=== PATIENT | female | born 1945 | race Asian ===

== ENCOUNTER 2016-12-01 09:51 | Inpatient (IN) | payer MEDICARE, MEDICAID ==
[~2016-12-01] VITALS: Ht 165.1 cm; Wt 68.0 kg
[2016-12-01] VITALS (15 sets, daily range): BP systolic 77–133
[2016-12-01] MEDS ORDERED: NITROGLYCERIN LINGUAL 400 mCg/SPRAY SL ONE (10:15)
[2016-12-01 10:20] LABS: BASOPHILS # (AUTO) 0.2 K/uL (0.0-0.2); EOSINOPHILS # (AUTO) 0.3 K/uL (0.0-0.4); EOSINOPHILS % (AUTO) 2.5 % (0.0-4.0); HEMATOCRIT 33.4 % (36-48); HEMOGLOBIN 11.2 g/dL (12.0-16.0); LYMPHOCYTES # (AUTO) 2.4 K/uL (1.0-5.5); MEAN CORPUSCULAR HEMOGLOBIN 31 pg (27-31); MEAN CORPUSCULAR HGB CONC 34 % (32-36); MEAN CORPUSCULAR VOLUME 92 fL (79.0-98.0); MONOCYTES # (AUTO) 0.4 K/uL (0.0-1.0); MONOCYTES % (AUTO) 4.3 % (1.7-9.3); NEUTROPHILS # (AUTO) 7.1 K/uL (1.8-7.7); NEUTROPHILS % (AUTO) 68.2 % (40.0-70.0); PLATELET COUNT (AUTO) 145 K/uL (130-430); RED BLOOD CELL COUNT(AUTO) 3.62 MIL/uL (4.2-6.2); WHITE BLOOD COUNT (AUTO) 10.4 K/uL (4.8-10.8)
[2016-12-01 10:26] LABS: CALCIUM 8.4 mg/dL (8.4-11.0); CREATININE 2.36 mg/dL (0.55-1.30); POTASSIUM 3.8 mmol/L (3.5-5.1)
[2016-12-01 10:29] LABS: PROTHROMBIN TIME 11.3 SECS (9.5-12.5)
[2016-12-01] MEDS ORDERED: DOPamine PREMIX 250 ML IV ONE ×2 (10:30→19:02)
[2016-12-01 10:31] LABS: ALBUMIN 3.3 g/dL (3.4-4.8); TOTAL BILIRUBIN 0.8 mg/dL (0.0-1.0)
[2016-12-01] MEDS ORDERED: glyburide (10:41)
[2016-12-01] MEDS ORDERED: amlodipine PO (10:41)
[2016-12-01] MEDS ORDERED: metformin (10:41)
[2016-12-01] MEDS ORDERED: GLIM4TAB PO (10:49)
[2016-12-01] MEDS ORDERED: VITD400 PO (10:49)
[2016-12-01] MEDS ORDERED: COMBIGAN OP (10:49)
[2016-12-01] MEDS ORDERED: TRAV2.5D OP (10:49)
[2016-12-01] MEDS ORDERED: LEVO25TA58 PO (10:49)
[2016-12-01] MEDS ORDERED: SIMV20TA6 PO (10:49)
[2016-12-01] MEDS ORDERED: ASPI81TA2 PO (10:49)
[2016-12-01] MEDS ORDERED: VALS1TAB78 PO (10:49)
[2016-12-01] MEDS ORDERED: VITA400C19 PO (10:49)
[2016-12-01] MEDS ORDERED: METF1000 PO (10:49)
[2016-12-01] MEDS ORDERED: ONDANSETRON HCL 4 MG/2 ML VIAL IVP ONE (11:45)
[2016-12-01 12:27] LABS: BILIRUBIN,URINE NEGATIVE (NEGATIVE); BLOOD, URINE 2+ (NEGATIVE); CLARITY/URINE CLEAR (CLEAR); COLOR,URINE YELLOW (YELLOW); GLUCOSE,URINE NEGATIVE (NEGATIVE); KETONES,URINE NEGATIVE (NEGATIVE); LEUKOCYTE ESTERASE ,URINE NEGATIVE (NEGATIVE); NITRITE, URINE NEGATIVE (NEGATIVE); PH,URINE 5.5 (5.0-8.0); PROTEIN URINE 2+ (NEGATIVE); UROBILINOGEN,URINE 0.2 (0.2-1.0)
[2016-12-01 12:34] LABS: BACTERIA,URINE FEW /HPF (None Seen); MUCUS,URINE None Seen /LPF (None Seen); WBC,URINE 0-3 /HPF (0-3)
[2016-12-01] MEDS ORDERED: ALBUTEROL SULFATE 0.083% 2.5 MG/3 ML VIAL.NEB INH ONE ×2 (13:45→14:05)
[2016-12-01] MEDS ORDERED: FUROSEMIDE 20 MG/2 ML VIAL IVP ONE (13:45)
[2016-12-01] MEDS ORDERED: SUCCINYLCHOLINE CHLORIDE 20 MG/ML(QUELICIN) IVP ONE ×3 (14:15→15:00)
[2016-12-01] MEDS ORDERED: POLYMYXIN 500,000/BACIT.10,000 UNITS in NS IRR 1 L IR ONE (14:58)
[2016-12-01] MEDS ORDERED: NS 1000 ML BAG IV ONE (15:25)
[2016-12-01] MEDS ORDERED: ATROPINE SULFATE 0.4 MG/ML VIAL IVP ONE (15:25)
[2016-12-01] MEDS ORDERED: MIDAZOLAM HCL 5 MG/5 ML VIAL IVP ONE (15:25)
[2016-12-01] MEDS ORDERED: ROCURONIUM BROMIDE 10 MG/ML (ZEMURON) IV ONE (15:25)
[2016-12-01] MEDS ORDERED: LIDOCAINE/EPI 1% 1:100000 20 ML VIAL INJ ONE (15:25)
[2016-12-01] MEDS ORDERED: CEFAZOLIN 1 GM IVPB PREMIX 50 ML IV ONE ×2 (15:25→23:40)
[2016-12-01] MEDS ORDERED: ePHEDrine sulfate 50 MG/ML VIAL IV ONE (15:25)
[2016-12-01 17:53] LABS: ABG TOTAL HEMOGLOBIN 13.1 G/dL (12.0-18.0); BLOOD GAS BASE EXCESS -9.6 mmol/L (-3.0-3.0); BLOOD GAS COHb% 0.3 % (0.5-1.5); BLOOD GAS PH 7.207 (7.350-7.450); BLOOD O2Hb% 81.8 % (94.0-97.0)
[2016-12-01 17:55] LABS: BLOOD GAS PH 7.238 (7.350-7.450)
[2016-12-01 17:56] LABS: BLOOD GAS HHB 17.8 % (0.0-6.0)
[2016-12-01 17:56] LABS: ABG TOTAL HEMOGLOBIN 13.1 G/dL (12.0-18.0); BLOOD GAS BASE EXCESS -11.1 mmol/L (-3.0-3.0); BLOOD O2Hb% 98.2 % (94.0-97.0)
[2016-12-01 17:57] LABS: BLOOD GAS COHb% 0.3 % (0.5-1.5)
[2016-12-01] MEDS ORDERED: MORPHINE 2 MG/ML INJ. SYRINGE IVP PRN (19:15)
[2016-12-01 19:22] LABS: THYROID STIMULATING HORMONE 4.27 uIu/mL (0.34-4.82)
[2016-12-01] MEDS ORDERED: MORPHINE 2 MG/ML INJ. SYRINGE ONE (19:25)
[2016-12-01] MEDS ORDERED: DOPamine PREMIX 250 ML IV PRN (20:15)
[2016-12-01] MEDS ORDERED: ceFAZolin SODIUM 1 GM VIAL ONE (22:16)
[2016-12-01] MEDS: ceFAZolin SODIUM 1 GM in D5W 50 ML IV SCH (22:28)
[2016-12-02] VITALS (30 sets, daily range): BP systolic 104–143
[2016-12-02] MEDS: ceFAZolin SODIUM 1 GM in D5W 50 ML IV SCH ×3 (05:35→21:32)
[2016-12-02] MEDS ORDERED: ASPIRIN 81 MG TAB.CHEW PO SCH (09:00)
[2016-12-02] MEDS ORDERED: VITAMIN E 400 UNIT CAPSULE PO SCH (09:00)
[2016-12-02] MEDS ORDERED: SIMVASTATIN 20 MG TABLET PO SCH (09:00)
[2016-12-02] MEDS: SIMVASTATIN 20 MG TABLET NG SCH (09:59)
[2016-12-02] MEDS: ASPIRIN 81 MG TAB.CHEW NG SCH (10:00)
[2016-12-02 10:01] LABS: BLOOD GAS BASE EXCESS -1.7 mmol/L (-3.0-3.0); BLOOD GAS COHb% 0.1 % (0.5-1.5); BLOOD GAS PH 7.398 (7.350-7.450); BLOOD O2Hb% 95.2 % (94.0-97.0)
[2016-12-03] VITALS (17 sets, daily range): BP systolic 114–148
[2016-12-03] MEDS: ceFAZolin SODIUM 1 GM in D5W 50 ML IV SCH ×3 (05:42→21:49)
[2016-12-03] MEDS ORDERED: ALBUTEROL SULFATE 0.083% 2.5 MG/3 ML VIAL.NEB INH PRN (08:00)
[2016-12-03] MEDS: VITAMIN E 400 UNIT CAPSULE NG SCH (08:59)
[2016-12-03] MEDS: ASPIRIN 81 MG TAB.CHEW NG SCH (08:59)
[2016-12-03] MEDS: SIMVASTATIN 20 MG TABLET NG SCH (08:59)
[2016-12-03] MEDS: INSULIN REGULAR, HUMAN 100 UNITS/ML, 10 ML VIAL (novoLIN R) SUBCUT PRN ×2 (18:03→21:57)
[2016-12-03] MEDS ORDERED: methylPREDNISolone SOD SUCC/PF 62.5 MG/ML VIAL IVP ONE (21:00)
[2016-12-03] MEDS ORDERED: FUROSEMIDE 40 MG/4 ML VIAL IVP ONE (21:00)
[2016-12-03] MEDS ORDERED: BRIMONIDINE TAR. 0.2%/TIMOLOL 0.5% EYE DROPS 5 ML OP SCH (21:00)
[2016-12-03] MEDS: BRIMONIDINE TARTRATE 0.15% 5 mL EYE DROPS OP SCH (21:00)
[2016-12-03 21:21] LABS: BLOOD GAS BASE EXCESS -2.1 mmol/L (-3.0-3.0); BLOOD GAS COHb% 0.1 % (0.5-1.5); BLOOD GAS HHB 8.8 % (0.0-6.0); BLOOD O2Hb% 90.9 % (94.0-97.0)
[2016-12-04] VITALS (20 sets, daily range): BP systolic 116–158
[2016-12-04] MEDS: ALBUTEROL SULFATE 0.083% 2.5 MG/3 ML VIAL.NEB INH PRN ×3 (05:53→20:56)
[2016-12-04] MEDS ORDERED: methylPREDNISolone SOD SUCC/PF 62.5 MG/ML VIAL IVP SCH (06:00)
[2016-12-04] MEDS: ceFAZolin SODIUM 1 GM in D5W 50 ML IV SCH (06:09)
[2016-12-04] MEDS: INSULIN REGULAR, HUMAN 100 UNITS/ML, 10 ML VIAL (novoLIN R) SUBCUT PRN ×4 (06:21→21:20)
[2016-12-04 07:24] LABS: ABG TOTAL HEMOGLOBIN 11.9 G/dL (12.0-18.0); BLOOD GAS PH 7.452 (7.350-7.450); BLOOD O2Hb% 95.8 % (94.0-97.0)
[2016-12-04 07:25] LABS: BLOOD GAS COHb% 0.3 % (0.5-1.5); BLOOD GAS HHB 3.4 % (0.0-6.0)
[2016-12-04] MEDS: ASPIRIN 81 MG TAB.CHEW NG SCH (09:12)
[2016-12-04] MEDS: SIMVASTATIN 20 MG TABLET NG SCH (09:12)
[2016-12-04] MEDS: BRIMONIDINE TARTRATE 0.15% 5 mL EYE DROPS OP SCH ×2 (09:14→21:12)
[2016-12-04] MEDS: VITAMIN E 400 UNIT CAPSULE NG SCH (10:03)
[2016-12-04] MEDS ORDERED: FUROSEMIDE 20 MG/2 ML VIAL IVP ONE (11:30)
[2016-12-04] MEDS ORDERED: metformin (12:07)
[2016-12-04] MEDS ORDERED: glyburide (12:07)
[2016-12-04] MEDS ORDERED: GLIMEPIRIDE 2 MG TABLET PO SCH (17:30)
[2016-12-04] MEDS: metFORMIN HCL 500 MG TABLET PO SCH (18:00)
[2016-12-05] VITALS (7 sets, daily range): BP systolic 125–140
[2016-12-05] MEDS: INSULIN REGULAR, HUMAN 100 UNITS/ML, 10 ML VIAL (novoLIN R) SUBCUT PRN ×3 (06:10→17:44)
[2016-12-05 07:14] LABS: HEMATOCRIT 34.4 % (36-48); HEMOGLOBIN 11.7 g/dL (12.0-16.0); MEAN CORPUSCULAR HEMOGLOBIN 31 pg (27-31); MEAN CORPUSCULAR HGB CONC 34 % (32-36); MEAN CORPUSCULAR VOLUME 92 fL (79.0-98.0); PLATELET COUNT (AUTO) 170 K/uL (130-430); RED BLOOD CELL COUNT(AUTO) 3.73 MIL/uL (4.2-6.2); RED CELL DISTRIBUTION WIDTH 11.9 % (9.0-15.0); WHITE BLOOD COUNT (AUTO) 12.8 K/uL (4.8-10.8)
[2016-12-05 07:24] LABS: CALCIUM 9.3 mg/dL (8.4-11.0); CREATININE 1.24 mg/dL (0.55-1.30); POTASSIUM 3.4 mmol/L (3.5-5.1); TOTAL BILIRUBIN 0.7 mg/dL (0.0-1.0); TOTAL PROTEIN, SERUM 7.8 g/dL (6.4-8.3)
[2016-12-05 08:23] LABS: BAND % (MANUAL) 6 % (0-6); BASOPHILS % (MANUAL) 0 % (0-2); EOSINOPHILS % (MANUAL) 0 % (0-7); LYMPHOCYTES % (MANUAL) 12 % (20-46); MONOCYTES % (MANUAL) 3 % (0-11)
[2016-12-05] MEDS: ASPIRIN 81 MG TAB.CHEW NG SCH (08:36)
[2016-12-05] MEDS: VITAMIN E 400 UNIT CAPSULE NG SCH (08:37)
[2016-12-05] MEDS: SIMVASTATIN 20 MG TABLET NG SCH (08:38)
[2016-12-05] MEDS: metFORMIN HCL 500 MG TABLET PO SCH ×2 (08:38→17:44)
[2016-12-05] MEDS: BRIMONIDINE TARTRATE 0.15% 5 mL EYE DROPS OP SCH (08:40)
[2016-12-05] MEDS ORDERED: LISINOPRIL 5 MG TABLET PO SCH (09:00)
[2016-12-05] MEDS ORDERED: FUROSEMIDE 20 MG TABLET PO SCH (09:00)
[2016-12-05] MEDS ORDERED: ALBMDI INH (15:38)
[2016-12-05] MEDS ORDERED: FURO-150 PO (15:39)
== END 2016-12-05 18:28 | disposition home health service (06) | DRG 242 ==
LOC: SED 09:51 → SIC 10:34 → STU 12-03 16:30 → SIC 12-03 22:59 → STU 12-04 18:23
PROC: 0JH606Z Insertion of Pacemaker, Dual Chamber into Chest Subcutaneous Tissue and Fascia, Open Approach (ICD-10-PCS; 2016-12-01)
PROC: 02H63JZ Insertion of Pacemaker Lead into Right Atrium, Percutaneous Approach (ICD-10-PCS; 2016-12-01)
PROC: 0BH18EZ Insertion of Endotracheal Airway into Trachea, Via Natural or Artificial Opening Endoscopic (ICD-10-PCS; 2016-12-01)
PROC: 5A1935Z Respiratory Ventilation, Less than 24 Consecutive Hours (ICD-10-PCS; 2016-12-01)
PROC: 02HK3JZ Insertion of Pacemaker Lead into Right Ventricle, Percutaneous Approach (ICD-10-PCS; principal; 2016-12-01 16:45)
PROC: 5A09357 Assistance with Respiratory Ventilation, Less than 24 Consecutive Hours, Continuous Positive Airway Pressure (ICD-10-PCS; 2016-12-03)
DX: I44.2 Atrioventricular block, complete (principal); J96.00 Acute respiratory failure, unspecified whether with hypoxia or hypercapnia; E87.2 Acidosis; J81.1 Chronic pulmonary edema; I42.9 Cardiomyopathy, unspecified; N18.3 Chronic kidney disease, stage 3 (moderate); R00.1 Bradycardia, unspecified; I12.9 Hypertensive chronic kidney disease with stage 1 through stage 4 chronic kidney disease, or unspecified chronic kidney disease; R53.81 Other malaise; E03.9 Hypothyroidism, unspecified; E11.22 Type 2 diabetes mellitus with diabetic chronic kidney disease; E66.9 Obesity, unspecified; Z68.24 Body mass index [BMI] 24.0-24.9, adult; Z90.710 Acquired absence of both cervix and uterus; Z98.49 Cataract extraction status, unspecified eye; Z79.899 Other long term (current) drug therapy; Z86.73 Personal history of transient ischemic attack (TIA), and cerebral infarction without residual deficits
CPT/HCPCS: 36415; 36600; 71010; 76001; 80053; 80061; 81000-TC; 82803-TC; 82947-TC; 82962; 83880; 84443-TC; 84484; 85007; 85025; 85027; 85610-TC; 85730-TC; 87081; 93005; 93306; 94002; 94003; 94640; 94660; 94760; 96374; 97110-GP; 97116-GP; 97530-GP; 99291; C1785; C1894; C1898; J0330; J0461; J0690; J1265; J1940; J2250; J2270; J2405; J2930; J7030; J7060

== ENCOUNTER 2018-08-17 11:41 | Emergency (ER) | payer MEDICARE, MEDICAID ==
[~2018-08-17] VITALS: Ht 149.9 cm; Wt 63.0 kg
[2018-08-17 11:41] VITALS: BP_SYST 160
[~2018-08-17 11:41] MED LIST: ALBMDI INH; ASPI-1155 PO; CALC260T7 PO; COMBIGAN OP; FURO-150 PO; GLIM4TAB PO; HYDR-1189 PO; LEVO100T PO; METF1000 PO; SIMV20TA6 PO; TRAV2.5D OP; VALS1TAB78 PO; VITA400C19 PO; VITD400 PO; amlodipine PO; glyburide; metformin
--- NOTE | 2018-08-17 11:42 | NUR ---
BROUGHT BACK TO BED#7 AND TRIAGED. REPORT GIVEN TO SARI
[2018-08-17] MEDS ORDERED: IBUPROFEN 600 MG TABLET PO ONE (12:00)
--- NOTE | 2018-08-17 12:00 | NUR ---
ER Dr. Navarro at bedside examining patient.
--- NOTE | 2018-08-17 12:08 | NUR ---
Patient in radiology
--- NOTE | 2018-08-17 12:15 | NUR ---
Patient presented to ER with C/o back pain. Patient A&Ox4, afebrile, skin pink, respirations equal bilat, ambulatory, pain 12/02, denies N/V/D. Patient states she fell at home on Tuesday. Patient states she tripped on a box in her home and fell on to back, she did not extend arms to break fall and denies head injury during fall. Patient states the back pain from fall did not subside with OTC tylenol, so she decided to come to the ER.
[2018-08-17 12:55] VITALS: BP_SYST 160
--- NOTE | 2018-08-17 12:55 | NUR ---
Patient given written and verbal discharge instructions and verbalizes understanding. ER MD discussed with patient the results and treatment provided. Patient in stable condition. ID arm band removed. Rx of Robaxin & Tramadol given. Patient educated on pain management and to follow up with PMD. Pain Scale 7/10 tolerable for patient. Opportunity for questions provided and answered. Medication side effect fact sheet provided.
== END 2018-08-17 12:55 | disposition home or self-care (01) ==
LOC: SED 11:41
DX: S22.008A Other fracture of unspecified thoracic vertebra, initial encounter for closed fracture (principal); S39.012A Strain of muscle, fascia and tendon of lower back, initial encounter; E11.9 Type 2 diabetes mellitus without complications; I10 Essential (primary) hypertension; Z86.73 Personal history of transient ischemic attack (TIA), and cerebral infarction without residual deficits; Z95.0 Presence of cardiac pacemaker; Z85.850 Personal history of malignant neoplasm of thyroid; Z79.899 Other long term (current) drug therapy; W01.0XXA Fall on same level from slipping, tripping and stumbling without subsequent striking against object, initial encounter; Y93.89 Activity, other specified; Y92.89 Other specified places as the place of occurrence of the external cause; Y99.8 Other external cause status
CPT/HCPCS: 71046-TC; 72100-TC; 99283

== ENCOUNTER 2024-01-31 11:58 | Inpatient (IN) | payer MEDICARE, MEDICAID ==
[~2024-01-31] VITALS: Ht 167.6 cm; Wt 69.9 kg
[~2024-01-31 11:58] MED LIST changes: +HYDC2.5% TP; -HYDR-1189 PO; +HYDR-3919 PO; +SIMV-43 PO; -SIMV20TA6 PO; -VALS1TAB78 PO; +VALS1TAB79 PO; +VITA-345 PO; -VITA400C19 PO
[2024-01-31 12:00] VITALS: BP_SYST 109; PULSE 62; RESP 16; TEMP 97.7; O2SAT 98
[2024-01-31] MEDS ORDERED: LOSA50TA28 PO (12:19)
[2024-01-31] MEDS ORDERED: SENN8.6T19 PO (12:19)
[2024-01-31] MEDS ORDERED: VITD2000 PO (12:19)
[2024-01-31] MEDS ORDERED: GLIP2.5T3 PO (12:19)
[2024-01-31] MEDS ORDERED: SITA50TA3 PO (12:19)
[2024-01-31] MEDS ORDERED: AMLO5TAB92 PO (12:19)
[2024-01-31] MEDS ORDERED: DOCU-144 PO (12:19)
[2024-01-31] MEDS ORDERED: CARV25TA55 PO (12:19)
[2024-01-31] MEDS ORDERED: ATOR40TA68 PO (12:19)
[2024-01-31] MEDS ORDERED: LEVO88TA5 PO (12:19)
[2024-01-31 13:06] LABS: PROTHROMBIN TIME 10.9 SECS (9.5-12.5)
[2024-01-31 13:08] LABS: ALBUMIN 2.8 g/dL (3.4-4.8); AMYLASE 79 U/L (0-100); ANION GAP 10 (5-15); ASPARTATE AMINOTRANSFERASE 20 U/L (10-37); BILIRUBIN,DIRECT 0.1 mg/dL (0.0-0.3); CALCIUM 8.5 mg/dL (8.4-11.0); CARBON DIOXIDE 26 mmol/L (23-29); CHLORIDE 103 mmol/L (98-107); CREATININE 1.49 mg/dL (0.55-1.30); GLUCOSE 117 mg/dL (74-106); LIPASE 81 U/L (16-77); POTASSIUM 4.2 mmol/L (3.5-5.1); SODIUM SERUM 139 mmol/L (136-145); TOTAL BILIRUBIN 0.3 mg/dL (0.0-1.0); TOTAL PROTEIN, SERUM 6.9 g/dL (6.4-8.3); UREA NITROGEN, BLOOD 34 mg/dL (8-21)
[2024-01-31 13:11] LABS: BASOPHILS # (AUTO) 0.1 K/uL (0.0-0.2); BASOPHILS % (AUTO) 0.9 % (0.0-2.0); EOSINOPHILS # (AUTO) 0.3 K/uL (0.0-0.4); EOSINOPHILS % (AUTO) 3.5 % (0.0-4.0); LYMPHOCYTES % (AUTO) 25.2 % (20.5-51.5); MEAN CORPUSCULAR HEMOGLOBIN 29 pg (27-31); MEAN CORPUSCULAR HGB CONC 33 % (32-36); MEAN CORPUSCULAR VOLUME 88 fL (79.0-98.0); MONOCYTES # (AUTO) 0.5 K/uL (0.0-1.0); MONOCYTES % (AUTO) 5.9 % (1.7-9.3); NEUTROPHILS # (AUTO) 5.2 K/uL (1.8-7.7); NEUTROPHILS % (AUTO) 64.5 % (40.0-70.0); PLATELET COUNT (AUTO) 277 K/uL (130-430); RED BLOOD CELL COUNT(AUTO) 2.01 MIL/uL (4.2-6.2); RED CELL DISTRIBUTION WIDTH 13.9 % (9.0-15.0)
[2024-01-31 13:20] LABS: ALANINE AMINOTRANSFERASE 6 U/L (12-78)
[2024-01-31 13:22] LABS: HEMATOCRIT 17.6 % (36-48); HEMOGLOBIN 5.9 g/dL (12.0-16.0)
[2024-01-31] MEDS ORDERED: MAGNESIUM SULFATE 50 ML IV PRN (13:45)
[2024-01-31] MEDS ORDERED: POTASSIUM CHLORIDE 20 MEQ TABLET.ER PO PRN (13:45)
[2024-01-31] MEDS ORDERED: DOCUSATE SODIUM 100 MG CAPSULE PO PRN (13:45)
[2024-01-31] MEDS ORDERED: ZOLPIDEM TARTRATE 5 MG TABLET PO PRN (13:45)
[2024-01-31] MEDS ORDERED: MUPIROCIN 2% TOPICAL OINTMENT 22 GM NS PRN (13:45)
[2024-01-31] MEDS ORDERED: ACETAMINOPHEN 325 MG TABLET PO PRN ×3 (13:45→14:15)
[2024-01-31] MEDS ORDERED: ONDANSETRON HCL 4 MG/2 ML VIAL IVP PRN (13:45)
[2024-01-31] MEDS ORDERED: LORazepam 2 MG/ML VIAL IVP PRN (13:45)
[2024-01-31] MEDS ORDERED: MORPHINE 2 MG/ML INJ. SYRINGE IVP PRN ×2 (13:45)
[2024-01-31 14:03] LABS: TOTAL IRON BIND. CAPACITY 270 ug/dL (250-450)
[2024-01-31] MEDS: NACL 0.9% 1,000 ML IV SCH (15:01)
[2024-01-31 16:00] VITALS: BP_SYST 144; PULSE 65; RESP 18; TEMP 98.1; O2SAT 96
[2024-01-31] MEDS: FOLIC ACID 1 MG TABLET PO ONE (18:13)
[2024-01-31 20:00] VITALS: O2SAT 96
[2024-01-31] MEDS: SOD FERRIC GLUC COMPLEX/SUC 125 MG in NS 100 ML IV SCH (21:24)
[2024-02-01] MEDS: LEVOTHYROXINE SODIUM 0.088 MG TABLET PO SCH (06:21)
[2024-02-01 07:09] LABS: BASOPHILS # (AUTO) 0.1 K/uL (0.0-0.2); BASOPHILS % (AUTO) 0.8 % (0.0-2.0); EOSINOPHILS # (AUTO) 0.1 K/uL (0.0-0.4); HEMATOCRIT 26.5 % (36-48); HEMOGLOBIN 9.4 g/dL (12.0-16.0); LYMPHOCYTES # (AUTO) 1.2 K/uL (1.0-5.5); LYMPHOCYTES % (AUTO) 15.7 % (20.5-51.5); MEAN CORPUSCULAR HEMOGLOBIN 32 pg (27-31); MEAN CORPUSCULAR HGB CONC 35 % (32-36); MEAN CORPUSCULAR VOLUME 91 fL (79.0-98.0); MONOCYTES # (AUTO) 0.4 K/uL (0.0-1.0); MONOCYTES % (AUTO) 5.6 % (1.7-9.3); NEUTROPHILS # (AUTO) 5.8 K/uL (1.8-7.7); NEUTROPHILS % (AUTO) 75.9 % (40.0-70.0); PLATELET COUNT (AUTO) 209 K/uL (130-430); RED BLOOD CELL COUNT(AUTO) 2.91 MIL/uL (4.2-6.2); RED CELL DISTRIBUTION WIDTH 14.7 % (9.0-15.0); RETICULOCYTE COUNT 3.5 % (0.5-1.5); WHITE BLOOD COUNT (AUTO) 7.6 K/uL (4.8-10.8)
[2024-02-01 08:00] VITALS: BP_SYST 127; PULSE 60; RESP 17; TEMP 99.9; O2SAT 95
[2024-02-01 08:18] LABS: ANION GAP 11 (5-15); CALCIUM 7.5 mg/dL (8.4-11.0); CARBON DIOXIDE 24 mmol/L (23-29); CHLORIDE 105 mmol/L (98-107); CREATININE 1.28 mg/dL (0.55-1.30); GLUCOSE 106 mg/dL (74-106); POTASSIUM 4.1 mmol/L (3.5-5.1); SODIUM SERUM 140 mmol/L (136-145); UREA NITROGEN, BLOOD 30 mg/dL (8-21)
[2024-02-01 08:30] VITALS: O2SAT 95
[2024-02-01] MEDS ORDERED: BRIMONIDINE TAR. 0.2%/TIMOLOL 0.5% EYE DROPS 5 ML OP SCH (09:00)
[2024-02-01] MEDS: ATORVASTATIN 20 MG TABLET PO SCH (09:15)
[2024-02-01] MEDS: FOLIC ACID 1 MG TABLET PO SCH (09:15)
[2024-02-01] MEDS: BRIMONIDINE TARTRATE 0.2% 5 mL EYE DROPS OP SCH (09:18)
[2024-02-01] MEDS: TIMOLOL MALEATE 0.5% OPHTHALMIC DROPS 5 ML OP SCH (09:27)
[2024-02-01] MEDS: PANTOPRAZOLE SODIUM 40 MG/VIAL (PROTONIX) IVP ONE (11:41)
[2024-02-01 12:46] VITALS: BP_SYST 117; PULSE 77; RESP 16; TEMP 97.6; O2SAT 97
[2024-02-01] MEDS: CARVEDILOL 25 MG TABLET (COREG) PO ONE (15:30)
[2024-02-01] MEDS: amLODIPine BESYLATE 5 MG TABLET PO ONE (15:50)
[2024-02-01] MEDS: LOSARTAN POTASSIUM 50 MG TABLET (COZAAR) PO ONE (15:50)
[2024-02-01 16:45] VITALS: BP_SYST 117; PULSE 57; RESP 18; TEMP 97.6; O2SAT 95
[2024-02-01 16:52] LABS: HEMATOCRIT 24.6 % (36-48); HEMOGLOBIN 8.8 g/dL (12.0-16.0); MEAN CORPUSCULAR HEMOGLOBIN 32 pg (27-31); MEAN CORPUSCULAR HGB CONC 36 % (32-36); MEAN CORPUSCULAR VOLUME 89 fL (79.0-98.0); PLATELET COUNT (AUTO) 182 K/uL (130-430); RED BLOOD CELL COUNT(AUTO) 2.75 MIL/uL (4.2-6.2); RED CELL DISTRIBUTION WIDTH 15.2 % (9.0-15.0); WHITE BLOOD COUNT (AUTO) 6.4 K/uL (4.8-10.8)
[2024-02-01] MEDS: SOD FERRIC GLUC COMPLEX/SUC 125 MG in NS 100 ML IV SCH (18:03)
[2024-02-01 18:23] LABS: ATYPICAL LYMPHOCYTES % 7 % (0-0); BAND % (MANUAL) 1 % (0-6); BASOPHILS % (MANUAL) 0 % (0-2); EOSINOPHILS % (MANUAL) 4 % (0-7); LYMPHOCYTES % (MANUAL) 16 % (20-46); MONOCYTES % (MANUAL) 1 % (0-11)
[2024-02-01 18:25] LABS: ANISOCYTOSIS 1+; OVALOCYTES MODERATE; PLATELET ESTIMATE ADEQUATE (ADEQUATE); POLYCHROMASIA 1+
[2024-02-01 20:30] VITALS: O2SAT 93
[2024-02-01] MEDS: PANTOPRAZOLE SODIUM 40 MG/VIAL (PROTONIX) IVP SCH (21:42)
[2024-02-02 01:50] VITALS: BP_SYST 125; PULSE 66; RESP 17; TEMP 97.1; O2SAT 97
[2024-02-02 05:38] LABS: BASOPHILS % (AUTO) 0.6 % (0.0-2.0); EOSINOPHILS # (AUTO) 0.2 K/uL (0.0-0.4); EOSINOPHILS % (AUTO) 2.6 % (0.0-4.0); HEMATOCRIT 24.9 % (36-48); HEMOGLOBIN 8.7 g/dL (12.0-16.0); LYMPHOCYTES % (AUTO) 15.6 % (20.5-51.5); MEAN CORPUSCULAR HEMOGLOBIN 31 pg (27-31); MEAN CORPUSCULAR HGB CONC 35 % (32-36); MEAN CORPUSCULAR VOLUME 89 fL (79.0-98.0); MONOCYTES # (AUTO) 0.2 K/uL (0.0-1.0); NEUTROPHILS # (AUTO) 4.7 K/uL (1.8-7.7); NEUTROPHILS % (AUTO) 77.2 % (40.0-70.0); PLATELET COUNT (AUTO) 195 K/uL (130-430); RED BLOOD CELL COUNT(AUTO) 2.82 MIL/uL (4.2-6.2); WHITE BLOOD COUNT (AUTO) 6.1 K/uL (4.8-10.8)
[2024-02-02] MEDS: LEVOTHYROXINE SODIUM 0.1 MG TABLET PO SCH (06:31)
[2024-02-02 06:40] LABS: ANION GAP 10 (5-15); CALCIUM 7.4 mg/dL (8.4-11.0); CARBON DIOXIDE 24 mmol/L (23-29); CHLORIDE 108 mmol/L (98-107); CREATININE 1.07 mg/dL (0.55-1.30); GLUCOSE 82 mg/dL (74-106); POTASSIUM 3.7 mmol/L (3.5-5.1); SODIUM SERUM 142 mmol/L (136-145); UREA NITROGEN, BLOOD 20 mg/dL (8-21)
[2024-02-02 07:02] LABS: TOTAL IRON BIND. CAPACITY 198 ug/dL (250-450)
[2024-02-02 08:00] VITALS: BP_SYST 128; PULSE 59; RESP 12; TEMP 96.7; O2SAT 100
[2024-02-02] MEDS ORDERED: CARVEDILOL 25 MG TABLET (COREG) PO SCH (09:00)
[2024-02-02] MEDS ORDERED: CARVEDILOL 25 MG TABLET (COREG) PO PRN (09:00)
[2024-02-02] MEDS ORDERED: LOSARTAN POTASSIUM 50 MG TABLET (COZAAR) PO PRN (09:00)
[2024-02-02] MEDS ORDERED: LOSARTAN POTASSIUM 50 MG TABLET (COZAAR) PO SCH (09:00)
[2024-02-02] MEDS ORDERED: amLODIPine BESYLATE 5 MG TABLET PO PRN (09:00)
[2024-02-02] MEDS ORDERED: amLODIPine BESYLATE 5 MG TABLET PO SCH (09:00)
[2024-02-02 10:00] VITALS: O2SAT 100
[2024-02-02 12:12] VITALS: BP_SYST 140; PULSE 60; RESP 16; TEMP 98; O2SAT 96
[2024-02-02 17:26] VITALS: BP_SYST 138; PULSE 60; RESP 14; TEMP 98.3; O2SAT 96
[2024-02-02 20:00] VITALS: BP_SYST 121; PULSE 64; RESP 16; TEMP 97.5; O2SAT 94
[2024-02-03] VITALS (8 sets, daily range): BP systolic 130–153; PULSE 60–67; RESP 15–20; TEMP 96.8–98; O2SAT 96–97
[2024-02-03 05:38] LABS: BASOPHILS % (AUTO) 0.6 % (0.0-2.0); EOSINOPHILS # (AUTO) 0.2 K/uL (0.0-0.4); EOSINOPHILS % (AUTO) 3.2 % (0.0-4.0); HEMOGLOBIN 9.5 g/dL (12.0-16.0); LYMPHOCYTES % (AUTO) 16.5 % (20.5-51.5); MEAN CORPUSCULAR HEMOGLOBIN 31 pg (27-31); MEAN CORPUSCULAR HGB CONC 35 % (32-36); MEAN CORPUSCULAR VOLUME 90 fL (79.0-98.0); MONOCYTES # (AUTO) 0.3 K/uL (0.0-1.0); NEUTROPHILS # (AUTO) 4.7 K/uL (1.8-7.7); NEUTROPHILS % (AUTO) 74.7 % (40.0-70.0); PLATELET COUNT (AUTO) 200 K/uL (130-430); RED BLOOD CELL COUNT(AUTO) 3.02 MIL/uL (4.2-6.2); WHITE BLOOD COUNT (AUTO) 6.2 K/uL (4.8-10.8)
[2024-02-03 05:52] LABS: ANION GAP 11 (5-15); CALCIUM 7.4 mg/dL (8.4-11.0); CARBON DIOXIDE 25 mmol/L (23-29); CHLORIDE 106 mmol/L (98-107); CREATININE 1.04 mg/dL (0.55-1.30); GLUCOSE 85 mg/dL (74-106); POTASSIUM 3.6 mmol/L (3.5-5.1); SODIUM SERUM 142 mmol/L (136-145); UREA NITROGEN, BLOOD 15 mg/dL (8-21)
[2024-02-03 09:07] LABS: HEPATITIS B CORE AB, TOTAL Negative (Negative); HEPATITIS B SURFACE AG Negative (Negative); HEPATITIS C VIRUS AB Non Reactive (Non Reactive)
[2024-02-03] MEDS ORDERED: fentaNYL CITRATE/PF 100 MCG/2 ML AMP ONE (09:16)
[2024-02-03] MEDS ORDERED: MIDAZOLAM HCL 5 MG/5 ML VIAL ONE (09:16)
[2024-02-04 01:25] VITALS: BP_SYST 146; PULSE 60; RESP 19; TEMP 98.1; O2SAT 96
[2024-02-04 08:00] VITALS: BP_SYST 149; PULSE 66; RESP 16; TEMP 96.6; O2SAT 98
[2024-02-04 08:11] LABS: BASOPHILS % (AUTO) 0.5 % (0.0-2.0); EOSINOPHILS # (AUTO) 0.2 K/uL (0.0-0.4); HEMATOCRIT 28.8 % (36-48); HEMOGLOBIN 9.8 g/dL (12.0-16.0); LYMPHOCYTES % (AUTO) 17.5 % (20.5-51.5); MEAN CORPUSCULAR HEMOGLOBIN 30 pg (27-31); MEAN CORPUSCULAR HGB CONC 34 % (32-36); MEAN CORPUSCULAR VOLUME 89 fL (79.0-98.0); MONOCYTES # (AUTO) 0.3 K/uL (0.0-1.0); NEUTROPHILS # (AUTO) 4.2 K/uL (1.8-7.7); PLATELET COUNT (AUTO) 218 K/uL (130-430); RED BLOOD CELL COUNT(AUTO) 3.24 MIL/uL (4.2-6.2); RED CELL DISTRIBUTION WIDTH 15.6 % (9.0-15.0); WHITE BLOOD COUNT (AUTO) 5.7 K/uL (4.8-10.8)
[2024-02-04 08:21] LABS: ANION GAP 11 (5-15); CALCIUM 7.7 mg/dL (8.4-11.0); CARBON DIOXIDE 24 mmol/L (23-29); CHLORIDE 105 mmol/L (98-107); CREATININE 0.98 mg/dL (0.55-1.30); GLUCOSE 85 mg/dL (74-106); POTASSIUM 3.6 mmol/L (3.5-5.1); SODIUM SERUM 140 mmol/L (136-145); UREA NITROGEN, BLOOD 15 mg/dL (8-21)
[2024-02-04 13:39] VITALS: BP_SYST 140; PULSE 59; RESP 18; TEMP 96.7
[2024-02-04 16:29] VITALS: BP_SYST 137; PULSE 60; RESP 14; TEMP 98.3; O2SAT 100
[2024-02-04 17:23] VITALS: BP_SYST 137; PULSE 60; RESP 14; TEMP 98.3; O2SAT 100
[2024-02-07 03:06] LABS: HEPATITIS A AB, IgM Negative (Negative)
== END 2024-02-04 17:45 | DRG 377 ==
LOC: SED 11:58 → STU 13:42
PROVIDERS: ADMIT General Practice; ATTEND General Practice
PROC: 30233N1 Transfusion of Nonautologous Red Blood Cells into Peripheral Vein, Percutaneous Approach (ICD-10-PCS; principal; 2024-01-31)
PROC: 0DB68ZX Excision of Stomach, Via Natural or Artificial Opening Endoscopic, Diagnostic (ICD-10-PCS; 2024-02-03)
DX: K29.41 Chronic atrophic gastritis with bleeding (principal); L89.153 Pressure ulcer of sacral region, stage 3; N17.0 Acute kidney failure with tubular necrosis; D62 Acute posthemorrhagic anemia; E44.0 Moderate protein-calorie malnutrition; E03.9 Hypothyroidism, unspecified; E86.0 Dehydration; I12.9 Hypertensive chronic kidney disease with stage 1 through stage 4 chronic kidney disease, or unspecified chronic kidney disease; N18.9 Chronic kidney disease, unspecified; E78.5 Hyperlipidemia, unspecified; R91.8 Other nonspecific abnormal finding of lung field; E11.22 Type 2 diabetes mellitus with diabetic chronic kidney disease; Z86.73 Personal history of transient ischemic attack (TIA), and cerebral infarction without residual deficits; Z68.24 Body mass index [BMI] 24.0-24.9, adult; Z79.899 Other long term (current) drug therapy; K44.9 Diaphragmatic hernia without obstruction or gangrene; D63.1 Anemia in chronic kidney disease; K74.69 Other cirrhosis of liver; Z79.84 Long term (current) use of oral hypoglycemic drugs
CPT/HCPCS: 36415; 43239; 71045; 71250-TC; 80048; 80076; 82150; 82272; 82948; 83037; 83540; 83550; 83605; 83690; 83735; 84443; 85007; 85025; 85027; 85044; 85610; 85730; 86704; 86706; 86708; 86709; 86803; 86886; 86900; 86901; 86920; 87081; 87340; 88305; 88312; 88313; 93005; 97110-GP; 97112-GP; 97530-GP; 99285; G0378; J2250; J2470; J2916; J3010; J7030; P9021